=== PATIENT | female | born 1980 | race Caucasian/White ===

== ENCOUNTER 2024-12-12 15:19 | Outpatient (AMB) | payer BC, SELFPAY ==
[2024-12-12 15:26] VITALS: BP 122/62; PULSE 77; O2SAT 99
--- NOTE | 2024-12-12 15:26 | A.OFFVIS_ITS ---
Vital Signs 12/12/24 15:26 Weight 159 lb 13.362 oz BP 122/62 Blood Pressure Location Rt brachial Position Sitting Pulse 77 Pulse Source Doppler Pulse Oximetry (%) 99 Oxygen Delivery Method Room Air Intake Visit Reasons: Shortness of breath HPI Comments Details: The patient is here for pulmonary evaluation. The patient is a 44 year woman with known history of asthma as a child and then more recently she started developing increasing swelling of her body and also cough chest tightness and wheezing. She was placed on multiple inhalers with some relief. She also required a course of prednisone with also with some relief. She still having wheezing though on a regular basis. She is still using her rescue inhaler often with some partial improvement. Interestingly her daughter his diagnosed with cystic fibrosis which is a rare genotype. She has been further evaluated at [facility]. In the meantime the patient is not a candidate modifying therapy. Will go ahead and optimize the respiratory therapy by adding Symbicort and also Singulair to the regimen. The patient also has a nebulizer that she can use with Xopenex specially with a history of palpitations. The patient will undergo blood work and also PFTs to see if we can find the asthma phenotype. We can also consider biologics if the patient is no better. As far as exposures denies any mold or any new pets in the house denies any construction and demolition of the house and denies any new exposures to any fumes or toxins. [facility] Medical History (Updated 12/13/24 @ 08:30 by Justin Rodriguez MD) Chronic cough Atopic dermatitis Asthma Review of Systems Const Denies fever(s) Eyes Reports no additional complaints ENT Reports nasal congestion Card Denies chest pain Resp Reports cough and Reports wheezing GI Reports no additional complaints Musc Reports no additional complaints Skin/Breast Reports rash Neuro Reports no additional complaints Endo Reports no additional complaints Vaibhav/Lymph Reports no additional complaints Aller/Immun Reports wheezing Physical Exam Vital Signs: Last Vital Signs Pulse 77 12/12/24 15:26 BP 122/62 12/12/24 15:26 Pulse Ox 99 12/12/24 15:26 Oxygen Delivery Method Room Air 12/12/24 15:26 Const General: comfortable HEENT Head: Yes normocephalic Neck Neck: Yes supple Chest Chest palpation & inspection: normal inspection of the chest Resp Effort & Inspection: normal respiratory effort and prolonged expiratory phase Auscultation: wheezes Cardio Heart sounds: S1 normal heart sound present and S2 normal heart sound present GI Palpation (GI): Soft to palpation Skin General skin exam: no rashes or lesions noted Extrem General: Yes no clubbing, cyanosis or edema Assessment & Plan Assessment & Plan (1) Asthma: Code(s): J45.909 - Unspecified asthma, uncomplicated Category: Medical Qualifiers: Asthma severity: moderate Asthma persistence: persistent Asthma complication type: uncomplicated Qualified Code(s): J45.40 - Moderate persistent asthma, uncomplicated (2) Atopic dermatitis: Code(s): L20.9 - Atopic dermatitis, unspecified Category: Medical Qualifiers: Atopic dermatitis type: flexural Qualified Code(s): L20.89 - Other atopic dermatitis (3) Chronic cough: Code(s): R05.3 - Chronic cough Category: Medical Plan Bloodwork start Symbicort KATIE as needed start Singulair Orders: Orders Complete Blood Count Auto Diff 12/12/24 J45.909 - Unspecified asthma, uncomplicated Immunoglobulins,IgG IgA IgM 12/12/24 J45.909 - Unspecified asthma, uncomplicated Immunoglobulin E 12/12/24 J45.909 - Unspecified asthma, uncomplicated Hypersensitive Pneumonitis Prf 12/12/24 J45.909 - Unspecified asthma, uncomplicated, R91.8 - Other nonspecific abnormal finding of lung field Resp Allergy Profile Region I 12/12/24 J45.909 - Unspecified asthma, uncomplicated, R91.1 - Solitary pulmonary nodule PFT pulmonary function test Today J45.40 - Moderate persistent asthma, uncomplicated Basic Metabolic Panel 12/12/24 J45.909 - Unspecified asthma, uncomplicated Medications: New budesonide-formoterol 160-4.5 mcg/actuation 2 puffs inhalation BID 30 days 10.2 grams 11RF J44.89 - Other specified chronic obstructive pulmonary disease levalbuterol HCl 1.25 mg (3 mL) inhalation BID 30 days 180 mL 0RF J44.9 - Chronic obstructive pulmonary disease, unspecified montelukast (Singulair) 10 mg PO BEDTIME 30 days 30 tabs 11RF J45.909 - Unspecified asthma, uncomplicated Coding Level of Care Code New Pt Level 4 (02394) Diagnoses Moderate persistent asthma without complication J45.40 Asthma severity: moderate Asthma persistence: persistent Asthma complication type: uncomplicated Flexural atopic dermatitis L20.89 Atopic dermatitis type: flexural Chronic cough R05.3 Time Spent (min) 45
--- OUTSIDE RECORDS SUMMARY | 2024-12-12 16:49 | XMS_ITS | Patient Health Record ---
Author Organization [facility] Address [address] [place] [address] Care Team Providers Care Regulatory Compliance Coordinator Name Role Phone Shyanne Alvarez Unavailable [phone] Reason For Referral No Information Plan Of Treatment No Information Insurance Providers Payer Name Payer Address Payer Phone Subscriber Number Group Number Insured Name Patient Relationship to Insured Coverage Start Date Coverage End Date [employer] [place] [address] [place] [address] TIM RODRIGUEZ Self - patient is the insured
== END 2024-12-12 15:47 | disposition home or self-care (01) ==
LOC: HO.HPS 15:19
PROVIDERS: PCP Physician Assistant; Visit Provider Hospitalist
DX: J45.40 Moderate persistent asthma, uncomplicated (principal); L20.89 Other atopic dermatitis; R05.3 Chronic cough
CPT/HCPCS: 99204

== ENCOUNTER → 2024-12-12 15:19 | Outpatient (BNVA) | payer BC, SELFPAY | PROVIDERS: PCP Physician Assistant; Visit Provider Hospitalist ==

== ENCOUNTER 2024-12-15 08:31 | Outpatient (REF) | payer BC, SELFPAY ==
--- OUTSIDE RECORDS SUMMARY | 2024-12-15 08:42 | XMS_ITS | Patient Health Record ---
Author Organization [facility] Address [address] [place] [address] Care Team Providers Care Database Management System Specialist Name Role Phone Shyanne Alvarez Unavailable [phone] Reason For Referral No Information Plan Of Treatment No Information Insurance Providers Payer Name Payer Address Payer Phone Subscriber Number Group Number Insured Name Patient Relationship to Insured Coverage Start Date Coverage End Date [employer] [place] [address] [place] [address] TIM RODRIGUEZ Self - patient is the insured
[2024-12-15 08:47] LABS: MANUAL DIFF FLAG NO
[2024-12-15 09:00] LABS: Basophils Percent Auto 0.7 % (0-2); Eosinophils Absolute Auto 0.2 X10*3/uL (0.0-0.4); Eosinophils Percent Auto 2.9 % (0-4); Hematocrit 39.7 % (37.0-47.0); Hemoglobin 13.2 g/dl (12.0-16.0); Imm Gran Abs Auto 0.01 X10*3/uL (0.00-0.03); Imm Gran Pct Auto 0.2 % (0.0-0.4); Lymphocytes Absolute Auto 1.1 X10*3/uL (1.2-4.9); Mean Corpuscular HGB Conc 33.2 g/dl (31.0-35.0); Mean Corpuscular Hemoglobin 28.3 pg (27.0-33.0); Mean Platelet Volume 10.4 fL (9.4-12.3); Monocytes Absolute Auto 0.6 X10*3/uL (0.1-1.2); Monocytes Percent Auto 9.5 % (2-11); Neutrophils Percent Auto 68.7 % (45-73); Platelet Count 227 X10*3/uL (160-400); Red Blood Count 4.67 X10*6/uL (4.20-5.50); Red Cell Distribution Width 13.5 % (11.0-16.0); White Blood Count 5.9 X10*3/uL (4.8-10.8)
[2024-12-15 10:14] LABS: Anion Gap 10 (12-20); Blood Urea Nitrogen 16 mg/dL (9-16); Calcium 9.7 mg/dL (8.4-10.2); Carbon Dioxide 29 mmol/L (22-29); Chloride 104 mmol/L (96-108); Estimated Glomerular Filt Rate > 60; Glucose Random 98 mg/dL (60-115); Potassium 3.6 mmol/L (3.3-5.1); Sodium 139 mmol/L (135-145)
[2024-12-18 22:38] LABS: Class Alternaria alternata 0; Class Aspergillus fumigatus 0; Class Bermuda Grass 0; Class Birch 0; Class Cat Dander 0; Class Cladosporium herbarum 0; Class Cockroach 0; Class Common Ragweed 0; Class Cottonwood 0; Class Derm. pterony 0; Class Dermatophagoides farinae 0; Class Dog Dander 0; Class Elm 0; Class Maple Box Elder 0; Class Mountain Cedar 0; Class Mouse Urine Protein 0; Class Mugwort 0; Class Oak 0; Class Penicillium crysogenum 0; Class Rough Pigweed 0; Class Sheep Sorrel 0; Class Sycamore 0; Class Timothy Grass 0; Class Walnut Tree 0; Class White Ash 0; Class White Mulberry 0; D001 IgE D pteronyssinus <0.10 kU/L; D002 - IgE D farinae <0.10 kU/L; E001 - IgE Cat Dander <0.10 kU/L; E005 - IgE Dog Dander <0.10 kU/L; E072-IgE Mouse Urine <0.10 kU/L; G002 IgE Bermuda Grass <0.10 kU/L; G006 - IgE Timothy Grass <0.10 kU/L; I006-IgE Cockroach, German <0.10 kU/L; Immunoglobulin E 31 kU/L (<OR=114); M001 IgE Penicillium chrysogen <0.10 kU/L; M002 - IgE Cladosporium herbar <0.10 kU/L; M003 - IgE Aspergillus fumigat <0.10 kU/L; M006 - IgE Alternaria alternat <0.10 kU/L; T001 IgE Maple/Box Elder <0.10 kU/L; T003 IgE Common Silver Birch <0.10 kU/L; T006 - IgE Cedar, Mountain <0.10 kU/L; T007 - IgE Oak, White <0.10 kU/L; T008 IgE Elm, American <0.10 kU/L; T010 - IgE Walnut <0.10 kU/L; T011 - IgE Maple Leaf Sycamore <0.10 kU/L; T014 - IgE Cottonwood <0.10 kU/L; T015 - IgE Ash, White <0.10 kU/L; T070 - IgE White Mulberry <0.10 kU/L; W001 - IgE Ragweed, Short <0.10 kU/L; W006 - IgE Mugwort <0.10 kU/L; W014 IgE Pigweed, Common <0.10 kU/L; W018 IgE Sheep Sorrel <0.10 kU/L
[2024-12-19 09:58] LABS: IgA 144 mg/dL (47-310); IgG 1164 mg/dL (600-1640); IgM 79 mg/dL (50-300)
[2024-12-21 13:57] LABS: Asperg fumigatus Precip Abs NEGATIVE (NEGATIVE); Micropoly faeni Abs NEGATIVE (NEGATIVE); Pigeon serum Abs NEGATIVE (NEGATIVE); Saccharo pora viridis Abs NEGATIVE (NEGATIVE); Thermo candidus Abs NEGATIVE (NEGATIVE); Thermoa vulgaris #1 NEGATIVE (NEGATIVE)
== END 2024-12-15 08:32 | disposition home or self-care (01) ==
LOC: HO.LAB 08:31
PROVIDERS: PCP Physician Assistant; Visit Provider Hospitalist
DX: R91.1 Solitary pulmonary nodule (principal); R91.8 Other nonspecific abnormal finding of lung field; J45.909 Unspecified asthma, uncomplicated; Z91.09 Other allergy status, other than to drugs and biological substances
CPT/HCPCS: 36415; 80048; 82784; 82785; 85025; 86003; 86331; 86606; 86609

== ENCOUNTER 2025-03-14 08:01 | Outpatient (REF) | payer BC, SELFPAY ==
--- NOTE | 2025-03-14 08:04 | PFT_ITS ---
Flows: FEV1: 106 % of predicted at 3.09 L FVC: 110 % of predicted at 3.96 L FEV1/FVC: 78 % Bronchodilator response: Absent Volumes: Total lung capacity: 105 % of predicted at 5.51 L Residual volume: 113 % of predicted at 1.54 L Slow vital capacity: 103 % of predicted at 3.97 L Expiratory reserve volume: 59 % of predicted at 0.69 L Diffusion capacity: Normal Impression: No obstructive or restrictive ventilatory defect. No bronchodilator response. Decreased expiratory reserve volume suggests extrathoracic restriction likely secondary to abdominal obesity. MTDD
--- OUTSIDE RECORDS SUMMARY | 2025-03-14 08:07 | XMS_ITS | Patient Health Record ---
Author Organization [facility] Address [address] [place] [address] Care Team Providers Care Furniture Crater Name Role Phone Shyanne Alvarez Unavailable [phone] Reason For Referral No Information Plan Of Treatment No Information Insurance Providers Payer Name Payer Address Payer Phone Subscriber Number Group Number Insured Name Patient Relationship to Insured Coverage Start Date Coverage End Date [employer] [address] [place] [address] [phone] TIM RODRIGUEZ Self - patient is the insured
--- OUTSIDE RECORDS SUMMARY | 2025-03-14 08:08 | XMS_ITS | Clinical Summary ---
Author Organization [address] Address [address] [place] [address] Phone Care Team Providers Care System Designer Name Role Phone Woo Rothman Primary Care Provider [phone] Allergies Active Allergy Reactions Criticality Noted Date Comments Cephalexin Rash 09/26/2005 Cyclobenzaprine Hcl Rash 09/26/2005 Dicyclomine Hcl 06/08/2006 Flavoring Agent (Bulk) Anaphylaxis High 10/05/2022 Gluten 10/05/2022 Celiac Disease Hyoscyamine Sulfate 06/08/2006 Other 10/05/2022 Blisters from Steri Strips Rofecoxib Nausea And Vomiting 09/26/2005 Scopolamine 11/26/2005 Medications cetirizine (ZyrTEC) 10 mg tablet Take 1 Tablet by mouth daily. Active cholecalciferol (VITAMIN D-3) 50 mcg (2,000 unit) tablet Take by mouth daily. Active levothyroxine (SYNTHROID, LEVOTHROID) 100 mcg tablet Take 100 mcg by mouth daily. Active nitroglycerin (NITROSTAT) 0.[address] 1 Tablet under the tongue every 5 minutes as needed. Active ALBUTEROL INHL Inhale into the lungs as needed. Active EPINEPHrine (EpiPen Jr) 0.15 mg/0.3 mL injection Inject as directed as needed. Active docusate sodium (COLACE) 100 mg capsule Take 1 capsule (100 mg total) by mouth 1 (one) time each day. Active losartan (COZAAR) 25 mg tablet Take 0.5 tablets (12.5 mg total) by mouth 1 (one) time each day. Active budesonide (Pulmicort Flexhaler) 90 mcg/actuation inhaler Inhale 1 puff by mouth 1 (one) time each day. Rinse mouth with water after use to reduce aftertaste and incidence of candidiasis. Do not swallow. Active Ubrelvy 100 mg tablet Take 1 tablet (100 mg total) by mouth if needed. Active metoprolol tartrate (LOPRESSOR) 25 mg tablet Take 1 tablet (25 mg total) by mouth 2 (two) times a day. As needed for palpitations. 60 each 11 5 Active hydroCHLOROthiaz sean (HYDRODIURIL) 25 mg tabletIndication s:Hypertension, unspecified type TAKE 1 TABLET BY MOUTH 1 TIME EACH DAY. 90 tablet 2 5 Active Active Problems Problem Noted Date Diagnosed Date SOB (shortness of breath) 08/29/2024 Assessment & Plan (09/04/2024 12:18 PM EST): As outlined above, patient having continued shortness of breath when laying flat and coughing at night. Referral to pulmonology and sleep medicine made. Patient to complete stress echocardiogram as well. If abnormalities are seen on the stress echo, will consider complete echocardiogram. Orders: ECG 12 lead Ambulatory referral to Pulmonology; Future Ambulatory referral to Sleep Medicine; Future Hypertension 10/05/2022 Overview (08/09/2024): Last Assessment & Plan: Patient's blood pressure today 140/80. We will increase her amlodipine to 10 mg once a day in efforts to better control her blood pressure. Assessment & Plan (11/15/2024 4:56 PM EDT): Blood pressure is adequately controlled with a reading today of 124/82. Because she continues to follow with nephrology for the management of her blood pressure and I am in agreement that she can continue to do this as her blood pressure appears to be well-controlled. Assessment & Plan (09/04/2024 12:18 PM EST): Blood pressure is elevated today and she reports elevated blood pressure readings at home. With the reports of intermittent lower extremity and lower abdominal swelling, will initiate hydrochlorothiazide 25 mg daily. BMP in 1 week. Patient educated to call the office if she continues with elevated blood pressure readings over 140/80 to further titrate medication. I have reviewed with the patient the importance of a heart healthy lifestyle which includes eating a low-fat low-salt diet, getting regular exercise, maintaining a healthy weight, not smoking, and following up with routine medical care. Orders: hydroCHLOROthiazide (HYDRODIURIL) 25 mg tablet; Take 1 tablet (25 mg total) by mouth 1 (one) time each day. Stress echocardiogram (TTE) exercise with PRN contrast, bubble, strain, and 3D order panel; Future Basic metabolic panel; Future Unstable angina (CMS/HCC V24, CMS/HCC V28) 10/05 Palpitations 06/22/2022 Overview (08/09/2024): Last Assessment & Plan: I told the patient the only way I will know what the palpitations are as to do a monitor for 30 days she ended up doing 1 a year ago and had some significant problems with adhesive causing allergic reaction. I contacted him to come to cardiology to try to get a copy of that loop recorder but did not send it to me. We try to put in the effort to try to get those results to try to see if there is anything there because she never heard anything back from them they did located they did tell me they are can fax it but has not arrived. I offered to do another 30-day recorder and explained to her that so anyway that I can know what this is is to get it on paper. I did reassure her that with a structurally normal heart and no evidence for ischemia is unlikely that this is a life-threatening problem is more annoying than anything else. Her blood pressure is too low for me to just empirically start a beta-oneil so I told her if the palpitations worsen and she wants to go through another period of monitoring to give us a call. I also reassured her that she should have no problem doing high intensity exercise given the results of all her testing. Assessment & Plan (11/15/2024 4:56 PM EDT): We discussed her palpitations and reviewed the results of the quality assurance monitor. Since she continues to have occasional palpitations which are bothersome we discussed trialing medical therapy with metoprolol tartrate. I have advised for her to use this as needed and to try taking a half a tablet to start. If she continues to have daily palpitations she certainly can take this daily and was advised to take up to 25 mg twice daily to assist with her palpitations. We also discussed potential triggers and have asked the patient to keep track of her symptoms. Provided reassurance that her testing was completely normal and thus far we have not found any concerning findings which could be contributing to her symptoms. Strongly advised that she continue to follow with her director design. Assessment & Plan (09/04/2024 12:18 PM EST): 48-hour Holter monitor ordered to rule out arrhythmias. Orders: Cardiac holter monitor (<= 48 hours); Future Female infertility 10/27/2010 Overview (08/09/2024): Referral placed on 10/27/2010 to Reproductive Endocrinology at [facility]. Xavier Kraft MD Abdominal pain, generalized 04/23/2006 Dizziness and giddiness 11/26/2005 Assessment & Plan (09/04/2024 12:18 PM EST): Will further assess with 48-hour Holter monitor. Orders: Cardiac holter monitor (<= 48 hours); Future Chest pain 11/26/2005 Overview (08/09/2024): Last Assessment & Plan: Patient with a history of chest pain no obstructive coronary disease identified. Presumed vasospasm side effects from amlodipine off amlodipine only 2 episodes of pain since we last relieved with nitro still not clear whether this is coronary or esophageal spasm. Pain relieved with nitro patient continued to use episodic nitro for relief of the discomfort. At this point no further change in medical management at this time Assessment & Plan (09/04/2024 12:18 PM EST): Patient with atypical, ongoing chest discomfort that occurs at rest and with exertion. Is somewhat relieved by nitro, yet nitro does cause her severe headaches. Will further investigate symptom with a stress echocardiogram. Considered adding Imdur, yet may cause daily headaches and with lower extremity swelling will start with the addition of hydrochlorothiazide for her blood pressure. Patient advised to seek emergency medical attention by calling 911 if they were to develop severe dyspnea, chest pain that did not resolve with rest or nitroglycerin, or if they were to faint. Orders: Stress echocardiogram (TTE) exercise with PRN contrast, bubble, strain, and 3D order panel; Future Migraine without aura 11/26/2005 Overview (08/09/2024): IMO update Nonspecific abnormal finding in stool contents 0 11/26/2005 Pain in joint, lower leg 11/26/2005 Immunizations Name Administration Dates Next Due HPV, Quadrivalent 2007,11/01/2006,08/24/19 07 Hepatitis B (Aqzbmzo-C-Wtzks , Recombivax HB-Adult) 19yo and older 02/24/2006,01/20/2006 Influenza trivalent, with preservative (Fluzone; Afluria) 6mo and older 04/23/2006 PPD Test 01/20/2006, 5,05/22/2003,2001,12/23/2000,12/20/2000 Td Tetanus diptheria (Tdvax) 7yo and older 11/26/2005 Surgical History Surgery Date Site/Laterality Comments OTHER SURGICAL HISTORY PROCEDURE: ARTHROSCOPY PROCEDURE NEC OTHER SURGICAL HISTORY 10/21/2011 PROCEDURE: NJ DILATION & CURETTAGE DX&/THER NONOBSTETRIC; COMMENT: ERS performed in management of a Missed Medical History Medical History Date Comments Migraine without aura, witho ut mention of intractable migraine without mention of status migrainosus 11/26/2005 DX:Migraine with out aura, without mention of intractable migraine without mention of status migrainosus; COMMENT: status post CAT scan, neurology visit Dizziness and giddiness 11/26/2005 DX:Dizzi ness and giddiness; COMMENT: status post ears nose and throat Nonspecific abnormal finding in stool contents 11/26/2005 DX:Nonspecific abnormal find ing in stool contents Pain in joint, lower leg 11/26/2005 DX:Pain in joint, lower leg; COMMENT: status post right knee surgery times four Abdominal pain, generalized 04/23/2006 DX:A bdominal pain, generalized Historical Medical DX 07/12/2008 DX:Hashimo to thyroiditis Venereal disease, unspecified DX :Venereal disease, unspecified Other and unspecified noninf ectious gastroenteritis and colitis(558.9) DX:Other and unspec ified noninfectious gastroenteritis and colitis(558.9) Generalized osteoarthrosis, unspecified site DX:Generalized osteoarthrosi s, unspecified site Other specified personal his tory presenting hazards to health(V15.89) DX:Other specifie d personal history presenting hazards to health(V15.89) Hypothyroidism DX:Hypothyroidis m Celiac disease DX:Celiac diseas e Anxiety DX:Anxiety Hypertension 10/05/2022 Family History Medical History Relation Name Comments Asthma Brother 1 Hypertension Father Other cancer Father leukemia Hypertension Mother Other cancer Mother esophageal Diabetes Paternal Grandmother Hypertension Paternal Grandmother Relation Name Status Comments Brother 1 Brother 2 Alive Brother 3 Alive Brother 4 Alive Father Alive Maternal Grandfather Alive Maternal Grandmother Alive Mother (Age 46) esophageal cancer Paternal Grandfather Paternal Grandmother Alive Sister Alive Social History Tobacco Use Types Packs/Day Years Used Date Smoking Tobacco: Never Smokeless Tobacco: Never Alcohol Use Standard Drinks/Week Comments Not Currently 0 (1 standard drink = 0.6 oz pur e alcohol) Comments Unknown Sex and Gender Information Value Date Recorded Sex Assigned at Not on file Legal Sex Female 7:43 AM EST Gender Identity Not on file Sexual Orientation Not on file Obstetrics History Last Filed Vital Signs Vital Sign Reading Time Taken Comments Blood Pressure 124/82 11/15/2024 7:37 AM EDT Pulse 100 11/15/2024 7:37 AM EDT Temperature - - Respiratory Rate - - Oxygen Saturation 96% 11/15/2024 7:37 AM EDT Inhaled Oxygen Concentration - - Weight 70.2 kg (154 lb 12.8 oz) 11/15/2024 7:37 AM EDT Height 162.6 cm (5' 4 ) 11/15/2024 7:37 AM EDT Body Mass Index 26.57 11/15/2024 7:37 AM EDT Plan of Treatment Upcoming Encounters Date Type Department Care Team (Late st Contact Info) Description 06/26/2025 1:30 PM EST Office Visit [facility] [address] [place] [address] Boubacar Muhammad MD [address] [place] [address] [address] [place] [address] Health Maintenance Due Date Last Done Comments Breast Cancer Screening 1981 Hepatitis B Vaccines (3 of 3 - 19+ 3-dose series) 07/23/2006 02/24/2006, 01/20/2006 Pneumococcal Vaccine: Pediatrics (0 to 5 Years) and At-Risk Patients (6 to 49 Years) (2 of 2 - PCV) 04/10/2012 04/10/2011 Cervical Cancer Screening: Pap Smear 08/14/2013 08/14/2010, 08/14/2010 Cholesterol Screening (Lipid Panel) 06/21/2022 Social Influencers of Health Screening 06/21/2022 DTaP,Tdap,and Td Vaccines (3 - Td or Tdap) 11/01/2022 11/01/2012, 11/26/2005 Depression Screening 07/12/2024 Influenza Vaccine (#1) 2025 , 04/23/2023, 06/06/2022, Additional history exists Hypertension/CHF/CAD Annual BMP Blood Test 09/14/2025 09/14/2024, 11/13/2022 Hepatitis C Screening Completed 05/19/2006 HPV Vaccines Completed 2007, 10/11, 08/24/2006 HIV Screening Completed 10/16/2011 COVID-19 Vaccine Completed 06/02/2024, , 06/28/2021, Additional history exists HIB Vaccines Aged Out No longer eligi ble based on patient's age to complete this topic Hepatitis A Vaccines Aged Out No long er eligible based on patient's age to complete this topic IPV Vaccines Aged Out No longer eligi ble based on patient's age to complete this topic MMR Vaccines Aged Out No longer eligi ble based on patient's age to complete this topic Meningococcal ACWY Vaccine Aged Out N o longer eligible based on patient's age to complete this topic Meningococcal B Vaccine Aged Out No l onger eligible based on patient's age to complete this topic RSV Immunization Patients Under 20 months Aged Out No longer eligible based on patient's age to complete this topic Varicella Vaccines Aged Out No longer eligible based on patient's age to complete this topic Procedures Procedure Name Priority Date/Time Associated Diagnosis Comments BASIC METABOLIC PANEL Routine 09/14/2024 8:28 AM EST Hypertension, unspecified type HIV SCREENING Routine 10/16/2011 HPV Routine 08/14/2010 HEPATITIS C SCREENING Routine 05/19/2006 from Last 3 Months or Most Recently Relevant to Health Maintenance Results * Basic metabolic panel (09/14/2024 8:28 AM EST) Glucose 77 70 - 99 mg/dL [facility] Blood Urea Nitrogen (BUN) 14 6 - 24 mg/dL [facility] Creatinine 0.97 0.57 - 1.00 mg/dL [facility] 1 eGFR 74 >59 mL/min/1.7 3 [facility] 1 BUN/Creatinine Ratio 14 9 - 23 [facility] 1 Sodium 138 134 - 144 mmol/L [facility] Potassium 3.6 3.5 - 5.2 mmol/L [facility] 1 Chloride 100 96 - 106 mmol/L [facility] 1 Carbon Dioxide 25 20 - 29 mmol/L [facility] 1 Calcium 9.5 8.7 - 10.2 mg/dL [facility] 1 Blood Venous blood specimen / Unknown 09/14/2024 8:28 AM EST 09/14/2024 Narrative [facility] 1 - 09/14/2024 11:06 PM EST Performed at: 01 - [facility] [address] [id number] Core Man: Tiffanie Villeda MD, Phone: [phone] us Caprice Vanegas NP LAB BLOOD ORDERABLES Final Res ult [facility] 1 * HIV Screening (10/16/2011) HIV Screening Abstracted us Historical Provider HEALTH MAINTENANCE Final Result * Cervical Cancer Screening: HPV (08/14/2010) [facility] Cervical Cancer Screening: HPV No interpreta tion,abstr acted Historical Provider HEALTH MAINTENANCE Final Result * Hepatitis C Screening (05/19/2006) [facility] Hepatitis C Screening Abstracted Historical Provider HEALTH MAINTENANCE Final Result from Last 3 Months or Most Recently Relevant to Health Maintenance Insurance [facility] Care Teams System Designer Relationship Specialty Start Date End Date Woo Rothman PA [address] [place] [id number] PCP - General 10/13/22
--- OUTSIDE RECORDS SUMMARY | 2025-03-14 08:09 | XMS_ITS | Encounter Summary ---
Author Organization [facility] Address [address] [place] [address] Care Team Providers Care Client Services Account Manager Name Role Phone Woo Rothman Primary Care Provider [phone] Encounter Details Date Type Department Care Team (Late st Contact Info) Description 05/16/[address] [facility] - Main Lab [address] [facility] [place] [address] Luh Larry MD [address] [facility] [address] [place] [address] Calculus of kidney Social History Tobacco Use Types Packs/Day Years Used Date Smoking Tobacco: Never Smokeless Tobacco: Never Alcohol Use Standard Drinks/Week Comments Not Currently 0 (1 standard drink = 0.6 oz pur e alcohol) Comments Unknown Sex and Gender Information Value Date Recorded Sex Assigned at Not on file Legal Sex Female 7:43 AM EST Gender Identity Not on file Sexual Orientation Not on file documented as of this encounter Plan of Treatment Upcoming Encounters Date Type Department Care Team (Late st Contact Info) Description 06/26/2025 1:30 PM EST Office Visit [facility] [address] [place] [address] Boubacar Muhammad MD [address] [place] [address] Dr [address] [place] [phone] documented as of this encounter Procedures Procedure Name Priority Date/Time Associated Diagnosis Comments STONE ANALYSIS Routine 05/16/2024 3:56 PM EST Calculus of kidney documented in this encounter Results * Stone analysis (05/16/2024 3:56 PM EST) Component(s) See below 05/22/2024 7:11 PM EST [facility] Comment: 10% Calcium oxalate monohydrate (Whewellite) 80% Carbonate apatite (Dahllite) 10% Protein Stone Weight 0.0058 g 05/22/2024 7:11 PM EST [facility] Comment: This test was developed and its performance characteristics determined by [facility] in a manner consistent with CLIA requirements. This test has not been cleared or approved by the U.S. Food and Drug Administration. Test performed at [facility], [address] , [place] [address] Jennifer Pace MD, PhD - Oim Consultant Calculus 05/16/2024 3:56 PM EST 05/16/2024 3:57 PM EST Luh Larry MD LAB BODY FLUIDS AND STOOLS ORDERABLES Final Result [facility] [address] [place] [address] documented in this encounter Visit Diagnoses Diagnosis Calculus of kidney documented in this encounter Care Teams Client Services Account Manager Relationship Specialty Start Date End Date Woo Rothman PA [address] [place] [id number] PCP - General 10/13/22 documented as of this encounter
--- OUTSIDE RECORDS SUMMARY | 2025-03-14 08:09 | XMS_ITS | Clinical Summary ---
Author Organization [facility] Address [address] [address] Phone Care Team Providers Care Movie Editor Name Role Phone Woo Rothman Primary Care Provider [phone] Allergies Active Allergy Reactions Criticality Noted Date Comments Cephalexin Rash Low 09/26/2005 Cyclobenzaprine Rash Low 09/26/2005 Dicyclomine 06/08/2006 Gluten Meal 10/05/2022 Celiac Disease Hyoscyamine 06/08/2006 Scopolamine 11/26/2005 Sulfadiazine 08/16/2024 Medications buPROPion XL (WELLBUTRIN XL) 150 MG 24 hr tablet take 1 tablet by mouth every day for 90 days 5 Active cetirizine (ZyrTEC) 10 MG tablet Take 1 tablet by mouth 1 (one) time each day 0 Active cholecalciferol (VITAMIN D-3 SUPER STRENGTH) 50 MCG (1999 UT) tablet Take by mouth daily. Active docusate sodium (Colace) 100 MG capsule Take 100 mg by mouth 5 Active EPINEPHrine (EPIPEN-JR) 0.15 MG/0.3ML injection syringe Inject as directed as needed. Active NexIUM [address] capsule Take 40 mg by mouth 5 Active famotidine (PEPCID) 40 MG tablet Take 40 mg by mouth 1 (one) time each day 4 Active Synthroid 100 MCG tablet TAKE 1 TABLET BY MOUTH EVERY DAY IN THE MORNING ON EMPTY STOMACH FOR 90 DAYS 2 Active hydroCHLOROthiazi de 25 MG tablet Take 25 mg by mouth in the morning. Active Pulmicort Flexhaler 90 MCG/ACT inhaler inhale 1 puff twice a day Active albuterol HFA (PROVENTIL HFA;VENTOLIN HFA) 108 (90 Base) MCG/ACT inhaler Inhale 2 puffs every 6 (six) hours if needed Active tiZANidine (ZANAFLEX) 2 MG tablet Take 1 tablet by mouth every 8 (eight) hours if needed Active Ubrelvy 100 MG tablet take 1 tablet (100 mg total) by mouth daily as needed. Active tamsulosin (FLOMAX) 0.4 MG 24 hr capsuleIndication s:Urolithiasis Take 0.4 mg by mouth 1 (one) time each day if needed (stone passing symptoms) Active losartan (Cozaar) 25 MG tabletIndications :Essential hypertension Take 0.5 tablets (12.5 mg total) by mouth 1 (one) time each day 15 tablet 5 5 05/07/20 Active Active Problems Problem Noted Date Diagnosed Date Renal stone 08/16/2024 Essential hypertension 08/16/2024 Encounters Date Type Department Care Team Description 12/20/2024 Office Communication [facility] [address] [place] [phone] Cassie Demarco ARNP from Last 3 Months Social History Tobacco Use Types Packs/Day Years Used Date Smoking Tobacco: Never Assessed Comments Unknown Sex and Gender Information Value Date Recorded Sex Assigned at Not on file Legal Sex Female 5:02 PM EST Gender Identity Not on file Sexual Orientation Not on file Last Filed Vital Signs Vital Sign Reading Time Taken Comments Blood Pressure 122/80 11/08/2024 2:25 PM EDT Pulse 71 11/08/2024 2:25 PM EDT Temperature - - Respiratory Rate - - Oxygen Saturation 98% 09/28/2024 8:34 AM EDT Inhaled Oxygen Concentration - - Weight 68.9 kg (152 lb) 11/08/2024 2:25 PM EDT Height - - Body Mass Index - - Plan of Treatment Upcoming Encounters Date Type Department Care Team ([facility] st Contact Info) Description 05/10/2025 8:15 AM EDT Office Visit [facility] [address] [facility] [address] [place] [phone] Cassie DemarcoBOBBY [address] [address] Health Maintenance Due Date Last Done Comments Hepatitis B Vaccine (1 of 3 - 19+ 3-dose series) 2000 02/24/2006, 01/20/2006 Pneumococcal Vaccine: Peds ( 0 to 5 Years) and At-Risk Patients (6 to 49 Years) (2 of 2 - PCV) 04/10/2012 04/10/2011 Influenza Vaccine (#1) 2025 Pneumococcal Vaccine: 50+ Years Discontinued 1 Insurance [facility] Care Teams Movie Editor Relationship Specialty Start Date End Date Woo Rothman PA [address] [place] [id number] PCP - General Physician Segment Assembler 08/15/24
[2025-03-14 08:56] VITALS: PULSE 65; O2SAT 100
== END 2025-03-14 08:02 | disposition home or self-care (01) ==
LOC: HO.RESP 08:01
PROVIDERS: PCP Physician Assistant; Visit Provider Hospitalist
DX: J45.40 Moderate persistent asthma, uncomplicated (principal)
CPT/HCPCS: 94010; 94640; 94727; 94729

== ENCOUNTER → 2025-03-14 08:04 | Outpatient (BNV) | payer BC, SELFPAY | PROVIDERS: PCP Physician Assistant; Visit Provider Internal Medicine Pulmonary Disease | DX: J45.40 Moderate persistent asthma, uncomplicated (principal) | CPT/HCPCS: 94060; 94727; 94729 ==

== ENCOUNTER 2025-03-20 14:28 | Outpatient (AMB) | payer BC, SELFPAY ==
--- NOTE | 2025-03-20 14:37 | MHC.OFFVIS ---
Vital Signs 03/20/25 14:38 Height 5 ft 4 in Weight 156 lb 8.451 oz BMI 26.9 BP 138/54 L Blood Pressure Location Lt brachial Position Sitting Pulse 61 Pulse Source Pulse Oximeter Pulse Oximetry (%) 100 Oxygen Delivery Method Room Air Intake Visit Reasons: Shortness of breath Plant Operator/Shift Supervisor Required: No Accompanied by: Self / Same As Patient Allergies amitriptyline (From Elavil) Allergy (Verified 03/20/25 14:42) bradycardia ciprofloxacin (From Cipro) Allergy (Verified 03/20/25 14:42) Hives cyclobenzaprine Allergy (Verified 03/20/25 14:42) dermatitis dicyclomine (From Bentyl) Allergy (Verified 03/20/25 14:42) Rash hyoscyamine (From Levsin) Allergy (Verified 03/20/25 14:42) itching pneumococcal vaccine (From Pneumovax-23) Allergy (Verified 03/20/25 14:42) rash rofecoxib Allergy (Verified 03/20/25 14:42) Abdominal Pain scopolamine Allergy (Verified 03/20/25 14:42) dermatitis Sulfa (Sulfonamide Antibiotics) Allergy (Verified 03/20/25 14:42) dermatitis vilazodone (From Viibryd) Allergy (Verified 03/20/25 14:42) Vomiting HPI Comments Details: The patient is a 45 year woman with known history of asthma as a child and then more recently she started developing increasing swelling of her body and also cough chest tightness and wheezing. She was placed on multiple inhalers with some relief. She also required a course of prednisone with also with some relief. She still having wheezing though on a regular basis. She is still using her rescue inhaler often with some partial improvement. Interestingly her daughter his diagnosed with cystic fibrosis which is a rare genotype. She has been further evaluated at [facility]. In the meantime the patient is not a candidate modifying therapy. Will go ahead and optimize the respiratory therapy by adding Symbicort and also Singulair to the regimen. The patient also has a nebulizer that she can use with Xopenex specially with a history of palpitations. The patient will undergo blood work and also PFTs to see if we can find the asthma phenotype. We can also consider biologics if the patient is no better. As far as exposures denies any mold or any new pets in the house denies any construction and demolition of the house and denies any new exposures to any fumes or toxins. 03/20/2025 the patient is here for pulmonary follow-up visit. Overall she is doing better. Her cough is better. She is tolerating the Symbicort and also tolerating the Singulair. She still gets shortness of breath and chest tightness with activity be specially she is exercising. She does pre treat with the albuterol and this seems to be effective. We did review her blood work which was all reassuring except that she has a decreased lymphocyte count. Not that very significant but she will follow-up with her primary care doctor. In addition to that the patient had no evidence of any allergies. She did undergo pulmonary function studies which were perfectly normal. Although she still has some wheezing on exam although a lot better. She still has a diagnosis of asthma. Will no need to do any additional testing at this time. We talked about making sure she avoids the cold air and using her nose to breathe. She does have some difficulties breathing through her nose and she is using a new intake device to keep her nostrils and nares open. The patient follow-up sometime in the springtime when usually her respiratory symptoms are worse. If he has any worsening symptoms or any other concerns she can always call for further recommendations. [facility] Medical History (Updated 12/13/24 @ 08:30 by Justin Rodriguez MD) Chronic cough Atopic dermatitis Asthma Social History (Updated 03/20/25 @ 14:45 by Cheli Sams CMA) Patient Tobacco Use Status: Never used Tobacco Review of Systems Const Denies fever(s) Eyes Reports no additional complaints ENT Reports nasal congestion Card Denies chest pain Resp Reports cough and Reports wheezing GI Reports no additional complaints Musc Reports no additional complaints Skin/Breast Reports rash Neuro Reports no additional complaints Endo Reports no additional complaints Vaibhav/Lymph Reports no additional complaints Aller/Immun Reports wheezing Physical Exam Vital Signs: Last Vital Signs Pulse 61 03/20/25 14:38 BP 138/54 L 03/20/25 14:38 Pulse Ox 100 03/20/25 14:38 Oxygen Delivery Method Room Air 03/20/25 14:38 BMI result Body Mass Index 26.9 Const General: comfortable HEENT Head: Yes normocephalic Neck Neck: Yes supple Chest Chest palpation & inspection: normal inspection of the chest Resp Effort & Inspection: normal respiratory effort Auscultation: wheezes Cardio Heart sounds: S1 normal heart sound present and S2 normal heart sound present GI Palpation (GI): Soft to palpation Skin General skin exam: no rashes or lesions noted Extrem General: Yes no clubbing, cyanosis or edema Assessment & Plan Assessment & Plan (1) Asthma: Code(s): J45.909 - Unspecified asthma, uncomplicated Category: Medical Qualifiers: Asthma complication type: uncomplicated Asthma persistence: persistent Asthma severity: moderate Qualified Code(s): J45.40 - Moderate persistent asthma, uncomplicated (2) Atopic dermatitis: Code(s): L20.9 - Atopic dermatitis, unspecified Category: Medical Qualifiers: Atopic dermatitis type: flexural Qualified Code(s): L20.89 - Other atopic dermatitis (3) Chronic cough: Code(s): R05.3 - Chronic cough Category: Medical Plan Symbicort KATIE as needed Singulair CXR F/U Spring 2025 Orders: Orders XR chest 2V Today J45.40 - Moderate persistent asthma, uncomplicated Coding Level of Care Code Est Pt Level 4 (57793) Diagnoses Moderate persistent asthma without complication J45.40 Asthma complication type: uncomplicated Asthma persistence: persistent Asthma severity: moderate Flexural atopic dermatitis L20.89 Atopic dermatitis type: flexural Chronic cough R05.3 Time Spent (min) 17
[2025-03-20 14:38] VITALS: BP 138/54; PULSE 61; O2SAT 100; BMI 26.9
--- OUTSIDE RECORDS SUMMARY | 2025-03-20 17:02 | XMS_ITS | Encounter Summary ---
Author Organization [facility] Address [address] [place] [address] Care Team Providers Care Director Of Diversity And Inclusion Name Role Phone Woo Rothman Primary Care Provider [phone] Encounter Details Date Type Department Care Team (Late st Contact Info) Description 05/16/2024 Lab Requisition [facility] - Main Lab [address] [facility] [place] [address] Luh Larry MD [address] [facility] [address] [place] [address] Calculus of kidney Social History Tobacco Use [...] Description 06/26/2025 1:30 PM EST Office Visit [facility] [address] [place] [address] Boubacar Muhammad MD [address] [place] [address] Dr Pino [address] [place] [phone] documented as of this encounter Procedures Procedure [...] developed and its performance characteristics determined by [facility] in a manner consistent with CLIA requirements. This test has not been cleared or approved by the U.S. Food and Drug Administration. Test performed at [facility], [address] , [place] [address] Jennifer Pace MD, PhD - Able Bodied Watchman Calculus 05/16/2024 3:56 PM EST 05/16/2024 3:57 PM EST Luh Larry MD LAB BODY FLUIDS AND STOOLS ORDERABLES Final Result [facility] [address] [place] [address] documented in this encounter Visit Diagnoses Diagnosis Calculus of kidney documented in this encounter Care Teams Director Of Diversity And Inclusion Relationship Specialty Start Date End Date Woo Rothman PA [address] [place] [id number] PCP - General 10/13/22 documented as of this encounter
--- OUTSIDE RECORDS SUMMARY | 2025-03-20 17:02 | XMS_ITS | Patient Health Record ---
Author Organization [facility] Address [address] [facility] [address] [place] [address] Care Team Providers Care Oracle Application Consultant Name Role Phone Shyanne Alvarez Unavailable [phone] Reason For Referral No Information Plan Of Treatment No Information Insurance Providers Payer Name Payer Address Payer Phone Subscriber Number Group Number Insured Name Patient Relationship to Insured Coverage Start Date Coverage End Date [employer] [place] [address] [place] [address] [phone] TIM RODRIGUEZ Self - patient is the insured
--- OUTSIDE RECORDS SUMMARY | 2025-03-20 17:02 | XMS_ITS | Clinical Summary ---
Author Organization [address] Address [address] [place] [phone] Phone Care Team Providers Care Personnel Generalist Manager Name Role Phone Woo Rothman Primary Care Provider Allergies Active Allergy Reactions Criticality Noted Date [...] palpitations and reviewed the results of the boarding room fixer. Since she continues to have occasional palpitations [...] that she continue to follow with her grocery store manager. Assessment & Plan (09/04/2024 12:18 PM EST): 48-hour Holter monitor ordered to rule out arrhythmias. Orders: Cardiac holter monitor (<= 48 hours); Future Female infertility 10/27/2010 Overview (08/09/2024): Referral placed on 10/27/2010 to Reproductive Endocrinology at [facility]. Xavier Kraft MD Abdominal pain, generalized [...] Due HPV, Quadrivalent 2007,11/01/2006,08/24/19 07 Hepatitis B ([id number] , Recombivax HB-Adult) 19yo and older 02/24/2006,01/20/2006 Influenza trivalent, with preservative (Fluzone; Afluria) 6mo and older 04/23/2006 PPD Test 01/20/2006, 5,05/22/2003,2001,12/23/2000,12/20/2000 Td Tetanus diptheria (Tdvax) 7yo and older 11/26/2005 Surgical History Surgery Date Site/Laterality Comments OTHER SURGICAL HISTORY PROCEDURE: ARTHROSCOPY PROCEDURE NEC OTHER SURGICAL HISTORY 10/21/2011 PROCEDURE: IA DILATION & CURETTAGE DX&/THER NONOBSTETRIC; COMMENT: ERS [...] Description 06/26/2025 1:30 PM EST Office Visit [facility] [address] [place] [address] Boubacar Muhammad MD [address] [place] [address] Dr [address]ino [address] [place] [address] Health Maintenance Due Date Last Done [...] PM EST Performed at: 01 - [facility] [address] [id number] Magisterial District Judge: Tiffanie Villeda MD, Phone: [phone] us Caprice Vanegas NP LAB BLOOD ORDERABLES Final Res ult [facility] 1 * HIV Screening (10/16/2011) HIV Screening Abstracted us Historical Provider HEALTH MAINTENANCE Final Result * Cervical Cancer Screening: HPV (08/14/2010) [facility] Cervical Cancer Screening: HPV No interpreta tion,abstr acted Historical Provider HEALTH MAINTENANCE Final Result * Hepatitis C Screening (05/19/2006) [facility] Hepatitis C Screening Abstracted Historical Provider HEALTH MAINTENANCE Final Result from Last 3 Months or Most Recently Relevant to Health Maintenance Insurance [facility] Care Teams Personnel Generalist Manager Relationship Specialty Start Date End Date Woo Rothman PA [address] [place] [id number] PCP - General 10/13/22
--- OUTSIDE RECORDS SUMMARY | 2025-03-20 17:02 | XMS_ITS | Clinical Summary ---
Author Organization [facility] Address [address] [address] Phone Care Team Providers Care Rivet Bucker Name Role Phone Woo Rothman Primary Care [...] Office Communication [facility] [address] [place] [phone] Cassie Demarco ARNP from Last 3 Months [...] Upcoming Encounters Date Type Department Care Team ([facility] st Contact Info) Description 05/10/2025 8:15 AM EDT Office Visit [facility]. [address] [facility] [address] [place] [phone] Cassie DemarcoBOBBY [address] [address] Health Maintenance Due Date Last Done Comments Hepatitis B Vaccine (1 of 3 - 19+ 3-dose series) 2000 02/24/2006, 01/20/2006 Pneumococcal Vaccine: Peds ( 0 to 5 Years) and At-Risk Patients (6 to 49 Years) (2 of 2 - PCV) 04/10/2012 04/10/2011 Influenza Vaccine (#1) 2025 Pneumococcal Vaccine: 50+ Years Discontinued 1 Insurance [facility] Care Teams Rivet Bucker Relationship Specialty Start Date End Date Woo Rothman PA [address] [place] [phone] PCP - General Physician Cigarette Making Machine Operator 08/15/24
== END 2025-03-20 15:27 | disposition home or self-care (01) ==
PROVIDERS: PCP Physician Assistant; Visit Provider Hospitalist
DX: J45.40 Moderate persistent asthma, uncomplicated (principal); L20.89 Other atopic dermatitis; R05.3 Chronic cough
CPT/HCPCS: 99214